=== PATIENT | female | born 1980 | race Caucasian/White ===

== ENCOUNTER 2024-09-03 16:22 | Outpatient (CLI) | payer OTHER, SELFPAY ==
--- NOTE | ~2024-09-03 | XR_ITS ---
CHEST RADIOGRAPH, PA AND LATERAL CLINICAL HISTORY: COUGH, UNSPECIFIED . COMPARISON: None available TECHNIQUE: PA and lateral views of the chest. FINDINGS The cardiomediastinal silhouette is unremarkable. The lungs are clear. Visualized osseous structures and soft tissues are unremarkable. IMPRESSION: No focal infiltrate or effusion. Reviewed, dictated and finalized at location [facility]. [facility]
== END 2024-09-03 16:23 | disposition home or self-care (01) ==
LOC: GOSHIMG 16:25
PROVIDERS: PCP Physician Assistant; Visit Provider Physician Assistant
DX: R05.9 Cough, unspecified (principal)
CPT/HCPCS: 71046

== ENCOUNTER 2025-06-09 01:26 | Day surgery (SDC) | payer OTHER, SELFPAY ==
--- OUTSIDE RECORDS SUMMARY | 2021-03-08 04:16 | XMS_ITS | Continuity of Care Document ---
Author Organization [employer] Address [address] [place] [address] [address] [place] [address] Phone Care Team Providers Care Entry Level Marketing Assistant Name Role Phone Donna OTR/L, Fawn [place] Unavailable Unavailable Procedures Procedure Date Tip Protector Finger Orthotic Mgmt and Training OT RE-EVALUATION THERAPEUTIC EXERCISES MANUAL THERAPY FUNC ACTIVITY 15 MIN ULTRASOUND THERAPY PARAFFIN BATH THERAPEUTIC EXERCISES MANUAL THERAPY FUNC ACTIVITY 15 MIN ULTRASOUND THERAPY PARAFFIN BATH THERAPEUTIC EXERCISES MANUAL THERAPY FUNC ACTIVITY 15 MIN ULTRASOUND THERAPY PARAFFIN BATH THERAPEUTIC EXERCISES MANUAL THERAPY FUNC ACTIVITY 15 MIN ULTRASOUND THERAPY PARAFFIN BATH THERAPEUTIC EXERCISES MANUAL THERAPY FUNC ACTIVITY 15 MIN ULTRASOUND THERAPY PARAFFIN BATH THERAPEUTIC EXERCISES MANUAL THERAPY FUNC ACTIVITY 15 MIN ULTRASOUND THERAPY PARAFFIN BATH OT EVALUATION THERAPEUTIC EXERCISES MANUAL THERAPY ULTRASOUND THERAPY Advance Directives Directive Yes / No Effective Date File Name No Information Encounters Encounter Description Practice Location Reason(s) For Visit Diagnoses Date Provider Providers Copied on Encounter [facility], [address] [address], [place], [place], [id number], tel:[phone] [place] No Information 1 Schwjulio c rush Fawn. [address] [place] [address], [place] [address], [facility], . tel:[phone] [facility] [address], [id number], tel:[phone] [place] No Information 1 Schwarzbetyube r Fawn. [address] [place] [address], [address], [place], [place], [facility], . tel:[phone] [facility] [address] [place] [address], [place], [place], [id number], tel:[phone] [place] No Information 3 Hauscmario Daniels. [address] [place] [address], [place] [address], [place], [facility], . tel:[phone] Referring Provider: Joni Omalley, [address] [place] [address] [address], [place], [address]. tel:[phone] [facility] [address] [place] [address], [id number], tel:[phone] [place] No Information 3 Haenid Hellerfer. [address] [place] [address], [address], [place], [place], [facility], . tel:[phone] Referring Provider: Joni Omalley, [address] [place] [address] [address], [place], [address]. tel:[phone] [facility] [address] [place] [address], [id number], tel:[phone] [place] No Information 3 Haenid Daniels. [address] [place] [address], [place] [address], [place], [facility], . tel:[phone] Referring Provider: Joni Omalley, [address] [facility] [address], [place], [address]. tel:[phone], [id number], tel:[phone] [place] No Information 3 Hauschild Frances. [address] [place] [address], [address], [place], [facility], . tel:[phone] Referring Provider: Joni Omalley, [address] [facility] [address], [place], [address]. tel:[phone], [id number], tel:[phone] [place] No Information 3 Hauschild Frances. [address] [place] [address], [address], [place], [facility], . tel:[phone] Referring Provider: Joni Omalley, [address] [place] [address] [address], [place], [address]. tel:[phone], [id number], tel:[phone] [place] No Information 3 Hauschild Frances. [address] [place] [address], [address], [place], [facility], . tel:[phone] Referring Provider: Joni Omalley, [address] [place] [address] [address], [place], [address]. tel:[phone], [id number], tel:[phone] [place] Pain in joint involving hand 3 Hauschild Frances. [address] [place] [address], [address], [place], [facility], . tel:[phone] Referring Provider: Joni Omalley, [address] [place] [address], [address]. tel:[phone] Family History Family Member Type Diagnosis Age At Onset No Information Payers Payer name Insurance type Covered alliance party ID Rayna ordaz(s) [employer] CI [id number] Social History Type Description Quantity Date Captured Comments Sex Female Smoking Status No Information Chief Complaint And Reason For Visit No Information Reason For Referral Reason For Referral No Information History Of Present Illness Encounter Date Complaint History Of Prese nt Illness No Information Functional Status Date Functional Assessmen t No Information Instructions Date Instruction Additional Infor mation No Information Assessments Type Assessment Date No Information Patient Care Teams Name Effective Dates (start - stop) Status Members No Information
[2025-06-03 10:01] VITALS: BMI 24.1
--- OUTSIDE RECORDS SUMMARY | 2025-06-09 01:29 | XMS_ITS | Clinical Summary ---
Author Organization [facility] Address [address] [place] [address] Care Team Providers Care Rug Setter Velvet Name Role Phone Lilia Stevens Primary Care Pr ovider Source Comments [facility],non-owned Affiliates and Associated Physician Practices is amultiple site organization consisting of ambulatory clinics and hospital sitesin [place], [place], [place] and [place]. This disclosure is being madepursuant to the Care Everywhere program and may not contain all information available regarding this patient. Last updated 18.[facility] Allergies Active Allergy Reactions Criticality Noted Date Comments Hydrocodone-Acetaminophen Urticaria Medium 06/28/2024 Medications * Be aware that medications may not be up to date on this document. Alwaysverify current medications with the patient. triple antibiotic (Neosporin) [id number] ointment Apply to affected area 3 times daily 30 g 06/28/2024 Active Immunizations Immunization Administration Dates Next Due TDAP (7yrs+) 06/28/2024 Social History Tobacco Use Types Packs/Day Years Used Date Smoking Tobacco: Never Assessed Comments Unknown Sex and Gender Information Value Date Recorded Sex Assigned at Not on file Legal Sex Female 3:21 AM 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 Gender Identity Not on file Sexual Orientation Not on file Last Filed Vital Signs Vital Sign Reading Time Taken Comments Blood Pressure 100/70 06/28/2024 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 Pulse 84 06/28/2024 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 Temperature 36.6 C (97.8 F) 06/28/2024 3:22 AM 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 Respiratory Rate 18 06/28/2024 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 Oxygen Saturation 100% 06/28/2024 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 Inhaled Oxygen Concentration - - Weight 68 kg (150 lb) 06/28/2024 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 Height 170.2 cm (5' 7) 06/28/2024 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 Body Mass Index 23.49 06/28/2024 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 Plan of Treatment Health Maintenance Due Date Last Done Comments COLOGUARD (AGES 45-75) - COL ON CA SCREENING 1979 COLON MONITORING 1979 COLONOSCOPY - COLON CA SCREENING 1979 CT COLONOGRAPHY - COLON CA SCREENING 1979 Colorectal Cancer Screening 1979 FIT - COLON CA SCREENING 1979 FLEX SIG - COLON CA SCREENING 1979 LIPID TESTING 1979 MAMMOGRAM 1979 HIV SCREENING 1994 HEPATITIS C SCREENING 06/15/1997 HEPATITIS B VACCINE (1 of 3 - 19+ 3-dose series) 1998 HPV VACCINE (1 - 3-dose SCDM series) 2006 DEPRESSION SCREENING 08/06/2024 COVID-19 VACCINE (1 - 2023-2 5 season) 2025 INFLUENZA VACCINE (#1) 2025 PAP SMEAR 09/26/2026 09/26/2023, 09/26/2023 ZOSTER VACCINE (1 of 2) 2029 DTAP/TDAP/TD VACCINES (2 - T d or Tdap) 06/28/2034 06/28/2024 HIB VACCINE Aged Out No longer eligi ble based on patient's age to complete this topic MENINGOCOCCAL (Group B) VACCINE SHARED DECISION-MAKING Aged Out No longer eligible based on patient's age to complete this topic MENINGOCOCCAL GROUPS A/C/Y/W VACCINE Aged Out No longer eligible b ased on patient's age to complete this topic PNEUMOCOCCAL VACCINE Aged Out No long er eligible based on patient's age to complete this topic Insurance [employer] Care Teams Rug Setter Velvet Relationship Specialty Start Date End Date Lilia Stevens PA [address] [place] [address] PCP - General Physician Medication Specialist 06/28/24
--- OUTSIDE RECORDS SUMMARY | 2025-06-09 01:29 | XMS_ITS | Data Portability ---
Author Organization [facility] [place] Address [address] [place] [address] Care Team Providers Care Marketing Teacher Name Role Phone JAIME SOLER Primary Care Provider Assessment Encounter Date Assessment Date Assessment LastModified by Organization Details LastModified Time 12/29/2020 12/29/2020 Annual gynecological exam performed. Patient will come back in a year unless there are new symptoms. [email or web address] Not available 12/29/2020 11:56:40 09/26/2023 09/26/2023 Annual gynecological exam performed. Patient will come back in a year unless there are new symptoms. Not available 09/26/2023 10:51:52 12/11/2024 12/11/2024 Annual gynecological exam performed. Patient will come back in a year unless there are new symptoms. [email or web address] Not available 12/11/2024 09:53:00 Plan of Treatment Reminders Order Date Submit Date Provider Last Modified By Organization Details Last Modified Time Details Appointments None recorded . Lab hormone panel, serum or plasma 2024 025 [facility] (Lab), [address], [place], [address], 5 05:09:49 CBC w/ auto diff 2024 025 [facility] (Lab), [address] [place], [address], 5 05:09:47 CMP, serum or plasma 2024 025 [facility] (Lab), [address] [facility], [place], [address], 5 05:09:48 lipid panel, blood 2024 025 [facility] (Lab), [address] [facility], [place], [address], 5 05:09:48 TSH, serum or plasma 2024 025 [facility] (Lab), [address] [facility], [place], [address], 5 05:09:48 HbA1c (hemoglo bin A1c), blood 2024 025 [facility] (Lab), [address] [facility], [place], [address], 5 05:09:49 Referral None recorded . Procedures colonosc opy screenin g (PROC) 2024 025 [facility], [address], [place], [address], 5 12:17:58 Surgeries None recorded . Imaging MAMMO, screenin g, digital, bilatera l 2024 025 lucio [facility], [address] [place] [address] , [place], [address], 5 11:12:32 MAMMO, screenin g, digital, bilatera l [address] [facility], [address], [facility] [address], [place], [address], 2 16:45:50 Medication Orders progeste elle microniz ed 100 mg capsule 2024 025 [facility], [address] [place], [place], [id number], 5 10:30:12 estradio l 0.075 mg/24 hr semiweek ly transder mal patch 2024 025 [facility]72625, [address] [place], [place], [id number], 5 10:30:11 progeste elle microniz ed 100 mg capsule 2024 025 [facility] #33790, [address] [place], [place], [id number], 5 10:10:13 estradio l 0.05 mg/24 hr semiweek ly transder mal patch 2024 025 [facility] #76681, [address] [place], [place], [id number], 5 10:29:56 celecoxi b 200 mg capsule [id number] [facility] [address] [facility]05551, [address] [place], [place], [id number], 5 09:54:16 Celebrex 200 mg capsule [id number] [facility] [address] [facility]79264, [address] [place], [place], [id number], 5 09:54:16 Celebrex 200 mg capsule [email or web address] [facility] [address] [facility]86459, [address] [place], [place], [id number], 5 09:54:16 Patient TargetsNo targets recorded. Patient InstructionsNo instructions recorded. Reason for Referral None Reported. 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 Order ing Locat ion: [place] [facility] Recei brittny: 12/30 0057 First Scree n: Dorene Lund Speci men: Scree aleks Pap - Image d, Cervi x STATE MENT OF ADEQU ACY: Satis facto ry for evalu ation Trans forma tion zone compo nent prese nt FINAL DIAGN OSIS: Negat michael for Intra epith elial Lesio n or Felicia humphries Elect lester mathur gus d by Dorene Lund on 2020 at 2:49 PM ----- ----- ----- ----- ----- ----- ----- ----- ----- ----- ----- ----- ----- ----- ----- ----- ----- ---- HPV RESUL TS: HPV mRNA E6/E7 : No HPV mRNA Detec del NOTE: This high risk HPV mRNA assay detec ts fourt een high- risk HPV types (16, 18, 31, 33, 35, 39, 45, 51, 52, 56, 58, 59, 66, 68) witho ut diffe renti ation . CHART ABLE COMME NT: Note: This speci men was revie wed by a Cytot echno logis t and/o r Patho logis t (as indic ated in this repor t) after evalu ation using the Thinp rep Imagi ng Syste m. CLINI MAULIK INFOR MATIO N: Menst rual Statu s: LMP (if appli cable ): 021 Clini maulik Histo ry/Pr eviou s Pap: Type of Neopl oralia (if appli cable ): Other Histo ry: Hormo qi (if appli cable ): PAP EDUCA BILL L NOTE: The Pap Test is a scree aleks test with an inher ent false negat michael rate. Liqui d-bas e sampl ing may decre ase, but will not elimi les, false negat michael resul ts. A negat michael resul t does not precl ude the prese nce and/o r devel opmen t of disea se, since the prese nce of abnor mal cells in the sampl e depen ds on the locat ion of the lesio n and sampl ing techn ique. Barbara nued regul ar scree aleks is the best metho d of cance r preve ntion . If repor del cytol ogic findi ng do not corre late with physi maulik and/o r histo rical findi ngs, furth er inves tigat ion is recom ny d, as clini joo nguyen nted. 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 Elect ronic kareen weber d by Racehl de leon, Fernando teixeira, CT on 2023 at 7:11 PM ----- ----- ----- ----- ----- ----- ----- ----- ----- ----- ----- ----- ----- ----- ----- ----- ----- ---- HPV RESUL TS: HPV mRNA E6/E7 : No HPV mRNA Detec del NOTE: This high risk HPV mRNA assay detec ts fourt een high- risk HPV types (16, 18, 31, 33, 35, 39, 45, 51, 52, 56, 58, 59, 66, 68) witho ut diffe renti ation . COMME NT: This speci men was revie wed by a Cytot echno logis t and/o r Patho logis t (as indic ated in this repor t) after evalu ation using the Thinp rep Imagi ng Syste m. CLINI MAULIK INFOR MATIO N: Menst rual Statu s: LMP (if appli cable ): Clini maulik Histo ry/Pr eviou s Pap: Type of Neopl oralia (if appli cable ): Signi fican t Clini maulik Findi ngs: Other Histo ry: Hormo qi (if appli cable ): PAP EDUCA BILL L NOTE: The Pap Test is a scree aleks test with an inher ent false negat michael rate. Liqui d-bas ed sampl ing may decre ase, but will not elimi les, false negat michael resul ts. A negat michael resul t does not precl ude the prese nce and/o r devel opmen t of disea se, since the prese nce of abnor mal cells in the sampl e depen ds on the locat ion of the lesio n and sampl ing techn ique. Barbara nued regul ar scree aleks is the best metho d of cance r preve ntion . If repor del cytol ogic findi ng do not corre late with physi maulik and/o r histo rical findi ngs, furth er inves tigat ion is recom ny d, as clini joo nguyen nted. Not Available [facility] (Lab) [address], [place], [address], 10/01/2023 20:15:00 12/12/19 25 12/11/2024 CBC W/DIF F WBC 5.8 10'3/ uL 3.5-10 .5 Not Available [facility] (Lab) [address], [place], [address], 12/12/2024 05:09:47 12/12/19 25 12/11/2024 CBC W/DIF F RBC 4.03 10'6/ uL (based on docume nted legal sex) 3.80-5 .20 Not Available [facility] (Lab) [address], [place], [address], 12/12/2024 05:09:47 12/12/19 25 12/11/2024 CBC W/DIF F HGB 13.1 g/dL (based on docume nted legal sex) 11.6-1 5.4 Not Available [facility] (Lab) [address], [place], [address], 12/12/2024 05:09:47 12/12/19 25 12/11/2024 CBC W/DIF F HCT 43.1 % (based on docume nted legal sex) 34.0-4 5.0 Not Available [facility] (Lab) [address], [place], [address], 12/12/2024 05:09:47 12/12/19 25 12/11/2024 CBC W/DIF F MCV 106.9 fL 80.0-9 9.0 high Not Available [facility] (Lab) [address], [place], [address], 12/12/2024 05:09:47 12/12/19 25 12/11/2024 CBC W/DIF F MCH 32.5 pg 27.0-3 4.0 Not Available [facility] (Lab) [address] [facility], [place], [address], 12/12/2024 05:09:47 12/12/19 25 12/11/2024 CBC W/DIF F MCHC 30.4 g/dL 32.0-3 5.5 low Not Available [facility] (Lab) [address] [facility], [place], [address], 12/12/2024 05:09:47 12/12/19 25 12/11/2024 CBC W/DIF F RDW 12.9 % 11.0-1 5.0 Not Available [facility] (Lab) [address] [facility], [place], [address], 12/12/2024 05:09:47 12/12/19 25 12/11/2024 CBC W/DIF F plt 324 10'3/ uL 150-40 0 Not Available [facility] (Lab) [address] [facility], [place], [address], 12/12/2024 05:09:47 12/12/19 25 12/11/2024 CBC W/DIF F MPV 11.5 fL 8.8-12 .1 Not Available [facility] (Lab) [address] [facility], [place], [address], 12/12/2024 05:09:47 12/12/19 25 12/11/2024 CBC W/DIF F neutrophils 43.2 % 34.0-7 3.0 Not Available [facility] (Lab) [address] [facility] [address] [facility] [address], [place], [address], 12/12/2024 05:09:47 12/12/19 25 12/11/2024 CBC W/DIF F lymphocytes 45.8 % 15.0-5 0.0 Not Available [facility] (Lab) [address] [facility], [place], [address], 12/12/2024 05:09:47 12/12/19 25 12/11/2024 CBC W/DIF F monocytes 9.2 % 1.0-15 .0 Not Available [facility] (Lab) [address] [facility], [place], [address], 12/12/2024 05:09:47 12/12/1912/11/2024 CBC W/DIF F eosinophils 0.7 % 0.0-8. 0 Not Available [facility] (Lab) [address] [facility], [place], [address], 12/12/2024 05:09:47 12/12/1912/11/2024 CBC W/DIF F basophils 0.9 % 0.0-2. 0 Not Available [facility] (Lab) [address] [facility] [address] [facility], [place], [address], 12/12/2024 05:09:47 12/12/1912/11/2024 CBC W/DIF F immature granulocytes 0.2 % no define d refere nce range Immat ure Granu locyt es (IG) repre sents autom ated enume ratio n of Metam yeloc ytes, Myelo cytes and Promy elocy jackie when IG is < 5%. Blast s are not inclu ded in IG and repor del separ ately if prese nt. Not Available [facility] (Lab) [address] [facility] [facility], [place], [address], 12/12/2024 05:09:47 12/12/1912/11/2024 CBC W/DIF F absolute neutrophils 2.5 10'3/ uL 1.5-8. 0 Not Available [facility] (Lab) [address] [facility] [facility], [place], [address], 12/12/2024 05:09:47 12/12/1912/11/2024 CBC W/DIF F absolute lymphocytes 2.6 10'3/ uL 1.0-4. 0 Not Available [facility] (Lab) [address] [facility] [facility], [place], [address], 12/12/2024 05:09:47 12/12/19 25 12/11/2024 CBC W/DIF F absolute monocytes 0.5 10'3/ uL 0.2-1. 0 Not Available [facility] (Lab) [address] [facility], [place], [address], 12/12/2024 05:09:47 12/12/19 25 12/11/2024 CBC W/DIF F absolute eosinophils 0.0 10'3/ uL 0.0-0. 6 Not Available [facility] (Lab) [address] [facility], [place], [address], 12/12/2024 05:09:47 12/12/19 25 12/11/2024 CBC W/DIF F absolute basophils 0.1 10'3/ uL 0.0-0. 3 Not Available [facility] (Lab) [address] [facility], [place], [address], 12/12/2024 05:09:47 12/12/1912/11/2024 CBC W/DIF F absolute immature granulocytes 0.0 10'3/ uL 0.00-0 .10 Refer ence range s for nonbi nary/ inter sex or unspe cifie d gende r patie nts have not been estab lishe d. Pleas e refer to the arielo wing table for range s estab lishe d for cisge nder patie nts and evalu ate in the clini maulik sebastian xt of the indiv idual patie nt: https ://buddy jamison book. nm.or g/gen derx Not Available [facility] (Lab) [address] [facility] [facility], [place], [address], 12/12/2024 05:09:47 12/12/1912/11/2024 TSH, REFLE X FREE T4 TSH 0.68 uIU/m L 0.30-5 .33 Not Available [facility] (Lab) [address] [place], [address], 12/12/2024 05:09:47 12/12/1912/11/2024 CMP(C OMPRE HENSI VE METAB OLIC PANEL ) sodium 143 mmol/ L 133-14 6 Not Available [facility] (Lab) [address] [facility], [place], [address], 12/12/2024 05:09:48 12/12/19 25 12/11/2024 CMP(C OMPRE HENSI VE METAB OLIC PANEL ) potassium 4.2 mmol/ L 3.5-5. 1 Not Available [facility] (Lab) [address] [facility], [place], [address], 12/12/2024 05:09:48 12/12/19 25 12/11/2024 CMP(C OMPRE HENSI VE METAB OLIC PANEL ) chloride 104 mmol/ L 98-107 Not Available [facility] (Lab) [address] [facility], [place], [address], 12/12/2024 05:09:48 12/12/19 25 12/11/2024 CMP(C OMPRE HENSI VE METAB OLIC PANEL ) carbon dioxide 29 mmol/ L 21-31 Not Available [facility] (Lab) [address] [facility], [place], [address], 12/12/2024 05:09:48 12/12/19 25 12/11/2024 CMP(C OMPRE HENSI VE METAB OLIC PANEL ) anion gap 10 mmol/ L 4-13 Not Available [facility] (Lab) [address] [place], [address], 12/12/2024 05:09:48 12/12/19 25 12/11/2024 CMP(C OMPRE HENSI VE METAB OLIC PANEL ) blood urea nitrogen 15 mg/dL 7-25 Not Available [facility] (Lab) [address] [place], [address], 12/12/2024 05:09:48 12/12/19 25 12/11/2024 CMP(C OMPRE HENSI VE METAB OLIC PANEL ) creatinine 0.68 mg/dL 0.60-1 .30 Not Available [facility] (Lab) [address] [place], [address], 12/12/2024 05:09:48 12/12/19 25 12/11/2024 CMP(C OMPRE HENSI VE METAB OLIC PANEL ) egfrcr (CKD-epi 2020) >90 mL/mi n/1.7 3_m2 >=60 Not Available [facility] (Lab) [address] [facility], [place], [address], 12/12/2024 05:09:48 12/12/19 25 12/11/2024 CMP(C OMPRE HENSI VE METAB OLIC PANEL ) calcium 9.5 mg/dL 8.3-10 .5 Not Available [facility] (Lab) [address] [facility], [place], [address], 12/12/2024 05:09:48 12/12/19 25 12/11/2024 CMP(C OMPRE HENSI VE METAB OLIC PANEL ) glucose 72 mg/dL 70-100 Not Available [facility] (Lab) [address] [facility], [place], [address], 12/12/2024 05:09:48 12/12/19 25 12/11/2024 CMP(C OMPRE HENSI VE METAB OLIC PANEL ) protein, total 6.8 g/dL 6.4-8. 3 Not Available [facility] (Lab) [address] [place], [address], 12/12/2024 05:09:48 12/12/19 25 12/11/2024 CMP(C OMPRE HENSI VE METAB OLIC PANEL ) albumin 4.4 g/dL 3.5-5. 0 Not Available [facility] (Lab) [address] [place], [address], 12/12/2024 05:09:48 12/12/19 25 12/11/2024 CMP(C OMPRE HENSI VE METAB OLIC PANEL ) ALT 14 units /L 9-43 Not Available [facility] (Lab) [address] [place], [address], 12/12/2024 05:09:48 12/12/19 25 12/11/2024 CMP(C OMPRE HENSI VE METAB OLIC PANEL ) alkaline phosphatase 53 units /L 34-104 Not Available [facility] (Lab) [address], [place], [address], 12/12/2024 05:09:48 12/12/19 25 12/11/2024 CMP(C OMPRE HENSI VE METAB OLIC PANEL ) AST 18 units /L 13-39 Not Available [facility] (Lab) [address] [facility] [facility], [place], [address], 12/12/2024 05:09:48 12/12/19 25 12/11/2024 CMP(C OMPRE HENSI VE METAB OLIC PANEL ) bilirubin, total 0.5 mg/dL 0.2-1. 2 Not Available [facility] (Lab) [address] [place], [address], 12/12/2024 05:09:48 12/12/19 25 12/11/2024 LIPID PANEL ,AMA (LDL- CALC) total cholesterol 194 mg/dL 0-199 Not Available [facility] (Lab) [address] [facility] [address], [place], [address], 12/12/2024 05:09:48 12/12/1912/11/2024 LIPID PANEL ,AMA (LDL- CALC) triglyceride s 239 mg/dL 0-150 high NCEP Refer ence Value s for Trigl yceri sheryl: Awilda l: <150 mg/dL Borde rline High: 150 - 199 mg/dL High: 200 - 499 mg/dL Very High: >/= 500 mg/dL Not Available [facility] (Lab) [address] [place], [address], 12/12/2024 05:09:48 12/12/19 25 12/11/2024 LIPID PANEL ,AMA (LDL- CALC) HDL cholesterol 84 mg/dL >40 Not Available [facility] (Lab) [address] [facility], [place], [address], 12/12/2024 05:09:48 12/12/1912/11/2024 LIPID PANEL ,AMA (LDL- CALC) LDL cholesterol 77 mg/dL 0-99 Cutof f value s recom ny d by the Natio nal Kaylee stero l Educa tion Progr am: LEESA ABLE: Kaylee stero l <200 mg/dL LDL <100 mg/dL BORDE RLINE : Kaylee stero l 200-2 39 mg/dL LDL 101-1 59 mg/dL HIGHE R RISK: Kaylee stero l >240 mg/dL LDL >160 mg/dL , HDL <40 mg/dL Not Available [facility] (Lab) [address] [facility], [place], [address], 12/12/2024 05:09:48 12/12/1912/11/2024 LIPID PANEL ,AMA (LDL- CALC) non-HDL cholesterol 110 mg/dL no refere nce range A reaso nable goal for non-H DL kaylee stero l is one that is 30 mg/dL highe r than the LDL kaylee stero l goal. Not Available [facility] (Lab) [address] [facility] [facility], [place], [address], 12/12/2024 05:09:48 12/12/1912/11/2024 LIPID PANEL ,AMA (LDL- CALC) chol/HDL ratio 2.3 . 0.0-5. 0 On November 28, 2022, [facility] labor atori es erinn ed the equat ion for calcu latin g estim ated low-d ensit y lipop rotei n-cho leste rol (LDL- C) from the Cierra phan equat ion to the Melani monsalve/Shari costa equat ion. This new equat ion is only valid for lipid panel s with trigl yceri sheryl < 400 mg/dL . Dianai es jelani demon strat ed that this new equat ion will impro ve the accur acy of LDL-C , espec ially in scena bond when LDL-C ulisses ntrat ions are relat ively low (< 100 mg/dL ), trigl yceri sheryl are eleva del, or patie nt is non-f astin g. Refer ences : - Melani monsalve, Flavio Irby, Aramis Chinchilla , Angel tellez, Lino Alberts, Lino ferrera, Christopher paulson , and Carrington Covarrubias . 2013. Comp ariso n of a Novel Metho d vs the Fried sylvester Equat ion for Estim ating Low-D ensit y Lipop rotei n Kaylee stero l Level s from the Stand ankita Lipid Profi le. CHRISTOPHER: The Journ al of the Ameri can Medic al Assoc iatio n 310 19): 2060- . - Roman quijano V, Hallie J, Sharon quijano A, Edmund M, Zeinab garg R, Mu quijano E, Morena [facility] RS, Satish SR, Melani monsalve SS. Fast ing Versu s Nonfa sting and Low-D ensit y Lipop rotei n Kaylee stero l Accur acy. Circu latio n. 2017Aug 07;137 (1):1 0-19. Not Available [facility] (Lab) [address], [place], [address], 12/12/2024 05:09:48 12/12/19 25 12/11/2024 FSH, LH, ESTRA DIOL estradiol <5.0 pg/mL This assay was perfo rmed using [employer] ratio n reage nts and test kits. Value s obtai osiel with other assay metho ds or kits canno t be used inter plasencia eably . Femal e Estra diol Range s: Folli cular phase 12.4- 233 pg/mL Ovula tion phase 41.0- 398 pg/mL Lutea l phase 22.3- 341 pg/mL Postm enopa usal <5-13 8 pg/mL Healt hy Pregn ant Women 1st Trime ster 154-3 243 pg/mL 2nd Trime ster 1561- 08421 pg/mL 3rd Trime ster 8525- >3000 0 pg/mL Not Available [facility] (Lab) [address], [place], [address], 12/12/2024 05:09:49 12/12/1912/11/2024 FSH, LH, ESTRA DIOL FSH 63.7 mIU/m L This assay was perfo rmed using [employer] ratio n reage nts and test kits. Value s obtai osiel with other assay metho ds or kits canno t be used inter plasencia eably . Femal es Folli cular : 3.5-1 2.5 mIU/m L Ovula tion: 4.7-2 1.5 mIU/m L Lutea l: 1.7-7 .7 mIU/m L Postm enopa use: 25.8- 134.8 mIU/m L Not Available [facility] (Lab) [address] [facility], [place], [address], 12/12/2024 05:09:49 12/12/1912/11/2024 FSH, LH, ESTRA DIOL LH 45.3 mIU/m L This assay was perfo rmed using [employer] ratio n reage nts and test kits. Value s obtai osiel with other assay metho ds or kits canno t be used inter plasencia eay . Femal es Mid-F ollic ular: 2.4-1 2.6 mIU/m L Mid-C ycle: 14.0- 95.6 mIU/m L Mid-L uteal : 1.0-1 1.4 mIU/m L Postm enopa use: 7.7-5 8.5 mIU/m L Not Available [facility] (Lab) [address] [facility] [facility], [place], [address], 12/12/2024 05:09:49 12/12/1912/11/2024 HEMOG LOBIN A1C hemoglobin A1C 5.7 % 4.0-5. 6 high The Ameri can Diabe jackie Assoc iatio n recom mends that a prima ry goal of thersp summers be a HBA1C of < 7% and that physi cians yoel d reeva luate the treat ment regim en in patie nts with HBA1C value s consi stent ly > 8%. <5.7% Awilda l 5.7 - 6.4% Incre ased risk for diabe jackie >=6.5 % Diagn ostic of diabe jackie <7.0% Goal of thera py >8.0% Actio n sugge sted Not Available [facility] (Lab) [address], [place], [address], 12/12/2024 05:09:49 Result Notes None recorded. Problems Name Problem SNOMED Code Status Onset Date Resolution Date Notes Provider Name and Address Organization Details Recorded Time Screenin g for malignan t neoplasm of cervix Completed 201012/29/2020 Pap Smear;Pr actice ID: [address] [facility] 1 11:59:37 Right lower quadrant pain [id number] Active 2011 Abdomina l pain, right lower quadrant ;Practic e ID: [id number] Not Available [facility] 0 21:23:45 Speciali zed medical examinat ion Completed 201312/29/2020 Gynecolo gical Examinat ion;Braxton rded Elsewher e: No Locat ion: [facility] S ource: EHR Head Refrigeration Engineer jimmie: N Libradoti ce ID: [id number] Allan lable Time: 01:30:00 PM Catherine Morales [facility] 1 11:59:43 Adult health examinat ion Completed 201312/29/2020 ROUTINE MEDICAL EXAM;Rec orded Elsewher e: No Locat ion: [facility] S ource: EHR Head Refrigeration Engineer jimmie: N Practi ce ID: [id number] Allan lable Time: 01:30:00 PM [address]la Morales [facility] [address] 11:59:[address] Concept Completed 201412/29/2020 Encntr for arc cutter exam (general ) (routine ) w/o abn findings ;Practic e ID: 0001 Catherine [facility] 11:59:[address] Concept Completed 201412/29/2020 Encntr for general adult medical exam w/o abnormal findings ;Recorde d Elsewher e: No Locat ion: Rafaela garg [facility] S ource: EHR Head Refrigeration Engineer jimmie: N Practi ce ID: [id number] Allan lable Time: 02:30:00 PM Catherine [facility] 11:59:39 Problem Notes None recorded. Procedures Surgical History Date Name Laterality Status Provider Name and Address Organization Details Recorded Time 09/26/19 24 Date of Last Pap Smear completed Cathy Davis [facility] 12/11/2024 09:53:25 11/25/19 21 completed [facility] 12/29/2020 12:20:09 08/06/19 11 oophorectomy completed Sabra Case [facility] 09/26/2023 10:57:04 08/06/19 08 procedure on hand completed [facility] 12/29/2020 12:03:53 08/06/19 04 procedure on elbow completed [facility] 12/29/2020 12:03:27 Imaging Results None recorded. Procedure Notes None recorded. Medical Equipment None Reported. Allergies Allergen ID Allergen Name Allergen Category Reaction Reaction Severity Criticality Documentation Date Start Date Code Code System Note Provider Name and Address Organization Details Recorded Time 89853 acetamino phen medicatio n Not available Not available Not available 07/23/2020 161 RxNorm Comme nt: [facility]at [facility] Agent : Vicod in; [facility] 12:19:49 00900 acetamino phen / hydrocodo ne medicatio n Not available Not available Not available 12/29/2020 61791 2 RxNorm [facility] 11:59:24 Medications Name Sig Start Date Stop Date Status Note LastModified by Organization Details LastModified Time celecoxib 200 mg capsule Take initial loading dose of 400mg PO day 1, then, 200mg q12hr prn with max of 7 days for dysmenor nydia. 12/11 completed Not Available Not Available Not Available doxycycli ne hyclate 100 mg capsule TAKE 1 CAPSULE BY MOUTH TWICE DAILY WITH MEALS 09/26 completed Not Available Not Available Not Available estradiol 0.075 mg/24 hr semiweekl y transderm al patch Apply 1 patch twice a week by transder mal route. 2024 active Not Available Not Available Not Avai lable triamcino lone acetonide 0.5 % topical cream APPLY TO THE AFFECTED AREA TWICE DAILY active Not Available Not Available No t Available azithromy dipti 250 mg tablet TK 2 TS PO ON DAY 1, THEN TK 1 T PO D FOR 4 DAYS 12/11 completed Not Available Not Available Not Available prednison e 20 mg tablet TAKE 2 TABLETS BY MOUTH EVERY DAY NEEDED 02/10 completed Not Available Not Available Not Available estradiol 0.05 mg/24 hr semiweekl y transderm al patch APPLY 1 PATCH TOPICALL Y TO THE SKIN 2 TIMES A WEEK 02/10 completed Not Available Not Available Not Available tramadol 50 mg tablet TAKE 1 TABLET BY MOUTH EVERY 6 HOURS 02/10 completed Not Available Not Available Not Available cephalexi n 500 mg capsule TAKE 1 CAPSULE BY MOUTH EVERY 8 HOURS 12/11 completed Not Available Not Available Not Available prednison e 50 mg tablet TAKE 1 TABLET BY MOUTH EVERY DAY FOR 5 DAYS 09/26 completed Not Available Not Available Not Available codeine 10 mg-guaife nesin 100 mg/5 mL oral liquid TAKE 10 ML BY MOUTH EVERY 4 HOURS NEEDED 12/11 completed Not Available Not Available Not Available ergocalci ferol (vitamin D2) 1,250 mcg (50,000 unit) capsule TAKE 1 CAPSULE BY MOUTH EVERY WEEK DIRECTED active Not Available Not Available No t Available epinephri ne 0.3 mg/0.3 mL injection , auto-inje ctor INJECT 1 PEN IN THE MUSCLE ONE TIME DIRECTED NEEDED FOR ALLERGIC REACTION . active Not Available Not Available No t Available cefuroxim e axetil 500 mg tablet TAKE 1 TABLET BY MOUTH EVERY 12 HOURS 12/11 completed Not Available Not Available Not Available levofloxa dipti 500 mg tablet TAKE 1 TABLET BY MOUTH EVERY 24 HOURS FOR 7 DAYS 09/26 completed Not Available Not Available Not Available methylpre dnisolone 4 mg tablets in a dose pack FOLLOW PACKAGE DIRECTIO NS 12/11 completed Not Available Not Available Not Available albuterol sulfate HFA 90 mcg/actua tion aerosol inhaler INHALE 2 PUFFS BY MOUTH EVERY 4 HOURS NEEDED active Not Available Not Available No t Available cefdinir 300 mg capsule TAKE 1 CAPSULE BY MOUTH EVERY 12 HOURS 12/11 completed Not Available Not Available Not Available doxycycli ne hyclate 100 mg tablet TAKE 1 TABLET BY MOUTH TWICE DAILY FOR 10 DAYS 09/26 completed Not Available Not Available Not Available Laverne (28) 3 mg-0.03 mg tablet take 1 tablet by oral route every day for 28 days 04/29 completed Prescrib ed Elsewher e: No Locat ion: [facility] odify By: alexis shaffer Encou nter DateTime : 04/02/20 14 01:30:00 PM Not Available Not Available Not Available progester one micronize d 100 mg capsule Take 1 capsule every day by oral route. 2024 active Not Available Not Available Not Avai lable amoxicill in 875 mg-potass ium clavulana te 125 mg tablet TAKE 1 TABLET BY MOUTH EVERY 12 HOURS 09/26 completed Not Available Not Available Not Available Triveen-D uo DHA 29 mg-1 mg-400 mg oral pack take 1 by Oral route 12/29 completed Prescrib ed Elsewher e: No Locat ion: [facility] M odify By: [email or web address] tz Encou nter DateTime : 07/20/20 15 02:30:00 PM Not Available Not Available Not Available Paxlovid 300 mg (150 mg x 2)-100 mg tablets in a dose pack TAKE 3 TABLETS BY MOUTH TWICE DAILY 12/11 completed Not Available Not Available Not Available Vitals Date Recorded Systolic And Diastolic Provider Name and Address Organization Details Last Updated DateTime 09/26/2023 118/72 mm[Hg] Che Ward, [facility]- [address], [place], [address], [facility] 09/26/2023 11:56:53 Date Recorded Body height Body mass index (BMI) Body weight Provider Name and Address Organization Details Last Updated DateTime 09/26/2023 170.18 cm 24.1 kg/m2 80501.22 g Sabra Case [facility] 09/26/2023 10:53:54 Date Recorded Body height Body mass index (BMI) Body weight Systolic And Diastolic Provider Name and Address Organization Details Last Updated DateTime 12/11/2024 170.18 cm 24.4 kg/m2 56571.41 g 109/72 mm[Hg] Cathy Davis [facility] 12/11/2024 10:00:42 Date Recorded Body height Body mass index (BMI) Body weight Systolic And Diastolic Provider Name and Address Organization Details Last Updated DateTime 12/29/2020 170.18 cm 24.7 kg/m2 69469.59 g 126/83 mm[Hg] Catherine Morales [facility] 12/29/2020 12:19:45 Date Recorded Body height Body mass index (BMI) Body weight Systolic And Diastolic Provider Name and Address Organization Details Last Updated DateTime 02/10/2025 170.18 cm 24.9 kg/m2 76066.19 g 125/84 mm[Hg] Sabra Case [facility] 02/10/2025 10:12:28 Date Recorded Body height Body mass index (BMI) Body weight Systolic And Diastolic Provider Name and Address Organization Details Last Updated DateTime 04/06/2021 170.18 cm 24.6 kg/m2 77531 g 112/76 mm[Hg] Raquel Dawkins [facility] 04/06/2021 13:02:42 Social History Question Answer Notes LastModified by Organizat ion Details LastModified Time Tobacco Smoking Status Never Smoker Catherine wren [facility] 12/29/2020 12:02:44 Do You Have An Advance Directive? No Information n ot available 12/11/2024 How Many Years Have You Consumed Alcohol? 25 Information not available 12/11/2024 Are You Blind Or Do You Have Difficulty Seeing? No Information n ot available 04/06/2021 What Is Your Level Of Caffeine Consumption? None [email or web address] Information not available 12/11/2024 How Much Tobacco Do You Chew? None [email or web address] Information not available 12/11/2024 In The 14 Days Before Symptom Onset, Have You Had Close Contact With A Laboratory-confirm ed COVID-19 While That Case Was Ill? No Information n ot available 09/26/2023 In The 14 Days Before Symptom Onset, Have You Had Close Contact With A Person Who Is Under Investigation For COVID-19 While That Person Was Ill? No Information not available 09/26/2023 Have You Been To An Area Known To Be High Risk For COVID-19? No Information not available 09/26/2023 Are You Deaf Or Do You Have Serious Difficulty Hearing? No Information not available 04/06/2021 What Type Of Diet Are You Following? REGULAR Information n ot available 04/06/2021 What Is The Highest Grade Or Level Of School You Have Completed Or The Highest Degree You Have Received? [id number] [email or web address] Information not available 12/11/2024 Are There Any Guns Present In Your Home? No [email or web address] Information not available 12/11/2024 Do You Use Protection During Sex? No [email or web address] Information not available 12/11/2024 Do You Use Your Seat Belt Or Car Seat Routinely? Yes Information not available 04/06/2021 Do You Have Smoke And Carbon Monoxide Detectors In Your Home? Yes Information not available 04/06/2021 How Much Tobacco Do You Smoke? No [email or web address] Information not available 12/11/2024 Do You Use Sunscreen Routinely? Yes [email or web address] Information not available 12/11/2024 Have You Used IV Drugs? No Information not available 12/11/2024 Sex: Unknown Functional Status Question Answer Note LastModified by Organizat ion Details LastModified Time Do you use any illicit or recreational drugs? No Information not available 04/06/2021 What is your level of alcohol consumption? Occasional Information not available 04/06/2021 Are you able to walk independently without assistance or assistive devices? 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 Heavy Information not available 12/11/2024 Mental Status Question Answer Note LastModified by Organization D etails LastModified Time Do you feel stressed (tense, restless, nervous, or anxious, or unable to sleep at night)? [id number] [email or web address] Information not available 12/11/2024 Family History Relationship Description Onset Age of this Age Resolved Age Notes LastModified by Organization Details LastModified Time Father Diabetes mellitus [email or web address] Not available 2020 12:02:25 Medical History Condition Response Other Y Gynecological History Statement/Question Response Abnormal Pap N Date of Last Mammogram Flow Moderate Date of LMP 01/24/2025 N Was last menstrual period normal N STIs/STDs N HPV Vaccine N Duration of Flow (days) 5 11/24/2020 Current Control Method None Are cycles usually normal Y Frequency of Cycle (Q days) 28 Sexually Active? Y Menses Monthly Y Age of first menstrual cycle 11 Date of Last Pap Smear 09/26/2023 Sexual Problems? N Desired Control Method None LMP Definite N Obstetrics History GPAL:G 0 P 0 0 0 0 Past Encounters Encounter ID Performer Location Encounter Start Date Encounter Closed Date Diagnosis/Indication Diagnosis SNOMED-CT Code Diagnosis ICD10 Code Diagnosis IMO Codes Diagnosis Note [id number] Che Ward [facility] [address] [address] 12/29/2020 11:47:57 12/29/2020 13:26:13 Gynecologic examination 49077110 Z01.419 Suggested Calcium with Vitamin D 1200-1500m g daily. Patient advised to get an annual flu shot in the fall and she could obtain at [facility] or [facility] care clinic. Also to obtain TDap vaccinatio n if you have not had one in the last 10 years. Recommend yearly mammograms . Encouraged monthly self breast exams. Encourage safe sexual practices, to use condoms and limit partners if not already in a monogamous relationsh ip. Engage in daily exercise of low impact aerobic exercise 45-60 minutes 4-5 times weekly. Avoid tobacco and illicit drugs as well as using moderation with alcohol intake less than 1-2 8 oz beverages daily. This lifestyle behavior pattern will lead to less health conditions and longer life span. If BMI greater than 25 weight watchers or dietary consult advised. All questions have been answered. Patient appears to understand informatio n, but if you have any questions please call or respond to this email. Pap/hpv sent Normal pap/hpv hx Mammo ordered Screening mammography 24 248838 Z12.31 Secondary dysmenorrhea 98752246 N94.5 We discussed Mirena IUD for her current periods and premedicat ing for Dysmenorrh ea. She will consider IUD but would like to trial Pre-medica ting regimen. We agreed to try Celebrex & Tramadol combo (written Rx given & copied to scan); May add tylenol to Celebrex q12hr if needed with max 7 days. Use Tramadol sparingly. Will f/u x 3mos med check. Discussed all control options. Patient will consider Mirena IUD option. I have discussed in detail all risks and benefits including risk of infection and perforatio n. She understand s she will need to contact office with next menses or may abstain, complete serum HCG day before placement, if neg can have IUD placed next day. Aware of need to verify with insurance device coverage. Literature given. [place]. [id number] Che Ward , [facility] [address] [address] 04/06/2021 12:46:15 04/06/2021 16:23:11 Secondary dysmenorrhea 17279643 N94.5 Has done really well on the celebrex/T ramadol combo during the first 1-2 days onset of her menses.She wishes to stay on this prn regimen moving forward; but will call if changes mind about getting IUD. She only uses Tramadol the first 1-2 days of her cycle (BID if needed).Sh forest voices she has tramadol 50mg tablets left over from her last fill; will call if needs a RF of this medication .Celebrex RF sent out Time spent in visit is a total of 15 mins with at least 50% of visit consisting of counseling and review of plan of care. Additional precaution cindy measures were taken to minimize potential exposure to the Covid-19 virus during this patient s visit, including available hand trip follower upon arrive, silvio e check and being asked a series of screening questions. All staff wore face coverings during this encounter, as well as provided additional cleaning and sanitizing of all surfaces, including countertop s, pens, chairs, door handles, light switches, etc, prior to and following the patient s visit. [id number] Che aWrd , [facility] [address] [address] 09/26/2023 10:42:38 09/26/2023 12:01:28 Dysmenorrhea 484833266 N94.6 Yearly Fills of Celebrex/t ramadol sent (case sent to Dr. Hawkins for Rx Tramadol)] Manages menstrual pain the first 1-2 days very well with this combo.It is not used every month; but q2-3mos if required. Gynecologi c examination 59590775 Z01.419 Z11.51 Suggested Calcium with Vitamin D 1200-1500m g daily. Patient advised to get an annual flu shot in the fall and she could obtain at [facility] or [facility] take care clinic. Also to obtain TDap vaccinatio n if you have not had one in the last 10 years. Recommend yearly mammograms . Encouraged monthly self breast exams. Encourage safe sexual practices, to use condoms and limit partners if not already in a monogamous relationsh ip. Engage in daily exercise of low impact aerobic exercise 45-60 minutes 4-5 times weekly. Avoid tobacco and illicit drugs as well as using moderation with alcohol intake less than 1-2 8 oz beverages daily. This lifestyle behavior pattern will lead to less health conditions and longer life span. If BMI greater than 25 weight watchers or dietary consult advised. All questions have been answered. Patient appears to understand informatio n, but if you have any questions please call or respond to this email. Pap/hpv sent STD Screen declined Genetic Screen discussed Colon Screen na Dexa Screen na Routine Labs PCP [id number] Sammy Hawkins MD [place] [address] [address] 12/11/2024 09:50:42 12/11/2024 10:23:57 Menopausal symptom 67678653 N95.1 [id number] Reviewed self-help strategies (dietary changes/ex ercise/acu puncture/e tc.), herbal and other OTC therapies, hormonal options as well as other medication s used to treat common menopausal symptoms. Discussed the risks, benefits and potential side effects and bleeding patterns with use of HRT. Reviewed the risk implicatio ns with short term vs termite control representative use. Patient interested in HRT.Will check labs today. We discussed Menopausal Hormone therapy (MHT) for women with intact uterus with the goals of reliving vaso-motor sx's using estrogen/p rogestin therapy (EPT) using lowest doses for shortest duration in women 40-59yo. Contraindi cations include: Hx of DVT or thrombolic events, High cholestero l, Hx of breast cancer, known CHD, active liver disease, unexplaine d vag bleeding, high risk endometria l cancer, TIA. Side effects can include but are not limited to: Irregular vag bleeding, breast tenderness , nausea, weight changes, libido changes, nausea. Adverse Rxn: Elevated BP migraine w/ visual changes, breast cancer dx, [place]/stroke, DVT/PE, Endometria l cancer. Please contact office with any new or worsening side effects or adverse reactions. Or if a medical emergency please go to nearest ED/[facility] care for further evaluation . RTO in 8 weeks for medication check Screening mammography 24 595802 Z12.31 [id number] Gynecologi c examination 20534317 Z01.419 Annual gynecologi maulik exam performed. Patient will come back in a year unless there are new symptoms. Suggest Calcium with Vitamin D if not eating in diet. Patient advised to get annual flu shot. Recommend yearly physicals and perform monthly breast exams. Genetic testing is available for patients with family history of cancer. Engage in safe sexual practices, use condoms. Encouraged to have daily exercise. Avoid tobacco and illicit drugs, moderation of alcohol. If BMI greater than 25 dietary consult advised. If you have any questions please call or email. mammogram- order given; pt to schedule colon cancer screening - referral sent to [facility] for colonoscop y DEXA scan- n/a Pap smear- UTD (2023 - WNL), will repeat in 2026 per ASCCP guidelines laboratory evaluation - requested STI testing - declined Screening colonoscopy 44 5682751 Z12.11 [id number] Sammy Hawkins MD [facility] [address] [address] 02/10/2025 09:59:49 02/10/2025 11:17:35 Menopausal symptom 22168358 N95.1 Patient reports 75% improvemen t in hot flashes during the day.Discus sed increasing estradiol 0.075 mg/24 hr semi-weekl y transderma l patch. Rx sent to trial increased dosage. Continue progestero ne 100 mg PO nightly for endometria l protection .Contact office if symptoms do not improve, or if any vaginal bleeding recurs.Ris ks/benefit s/AEs of HRT thoroughly reviewed. Health Concerns Section Related Observation LastModified by Organization Detai ls LastModified Time None Recorded Concern Status LastModified by Organization Details LastModified Time None Recorded Advance Directives Directive N: Payers Insurance Date Sequence Insurance Name Policy Number Policy Levi Covered Member ID Levi Member ID Guarantor Name 02/10/2025 1 [employer] - DOS PRIOR TO 21 - [facility] BENEFITS PLAN [id number] Verónica Pont [id number] OI [id number] SOI Verónica Pont 02/10/2025 1 [employer] - [facility] BENEFITS PLAN [id number] Verónica Pont [id number] OI Verónica Pont Notes Date Note Type Note Provider Name and Address Organization Details Recorded Time 12/30/19 21 text/htm l Annual GYNReported by PatientGenitourinary symptomsFor menstrual cycle, patient reportssevere dysmenorrhea (monthly predictabledysmenorrhea through all 5 days of her cycle.heavy x day 1-2. 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 she does not feel bcp's have helped significantly; it lightened her cycle but did not help as much with dysmenorrhea.). For urinary symptoms, patient reportsno hematuriaandno incontinence. For vulva, patient reportsno genital lesion. For vagina, patient reportsnormal vaginal discharge.Breast symptomsFor breast, patient reportsno breast pain,no breast lump, andno nipple discharge.ContraceptionFor current contraception, patient reportssatisfied with current contraceptionandpartner had vasectomy.Endocrine symptomsFor sexual complaints, patient reportsno sexual complaints,no pain during intercourse, andnormal libido. For menopausal symptoms, patient reportsno menopausal symptomsandnormal vaginal lubrication.Psychological symptomsFor psychological symptoms, patient reportsno depression,no anxiety, andno pmdd.Preventative measuresFor preventive measures, patient reportsencourage self breast examination,encourage regular exercise,encourage no tobacco use,encourage regular mammograms starting age 40, andneeds to schedule mammogram. Che Ward [facility] [address], [place], [address], [facility] 12/29/2020 13:24:34 04/06/20 21 text/htm l ROS as noted in the HPI Here for medication check of Celebrex/Tramadol combo for Severe dysmenorrhea. Che Ward [facility] [address], [place], [address], [facility] 04/06/2021 13:23:38 09/26/19 24 text/htm l Annual GYNReported by PatientHistoryFor history, patient reportsno gynecologic complaints.Genitourinary symptomsFor menstrual cycle, patient reportsnormal menses. For urinary symptoms, patient reportsno hematuriaandno incontinence. For vulva, patient reportsno genital lesion. For vagina, patient reportsnormal vaginal discharge.Breast symptomsFor breast, patient reportsno breast pain,no breast lump, andno nipple discharge.ContraceptionFor current contraception, patient reportssatisfied with current contraceptionandbirth control not practiced.Endocrine symptomsFor sexual complaints, patient reportsno sexual complaints,no pain during intercourse, andnormal libido. For menopausal symptoms, patient reportsno menopausal symptomsandnormal vaginal lubrication.Psychological symptomsFor psychological symptoms, patient reportsno depression,no anxiety, andno pmdd.Preventative measuresFor preventive measures, patient reportsencourage self breast examination,encourage regular exercise,encourage no tobacco use,encourage regular mammograms starting age 40, andfollowed with yearly pap smears. Che Ward [facility]- [address], [place], [address], [facility] 09/26/2023 12:00:00 12/12/19 25 text/htm l Annual GYNReported by PatientGenitourinary symptomsFor menstrual cycle, patient reportsirregular cycle intervalsandperimenopausal. For urinary symptoms, patient reportsno hematuriaandno incontinence. For vulva, patient reportsno genital lesion. For vagina, patient reportsnormal vaginal discharge.Breast symptomsFor breast, patient reportsno breast pain,no breast lump, andno nipple discharge.ContraceptionFor current contraception, patient reportscondoms.Endocrine symptomsFor sexual complaints, patient reportsno sexual complaints,no pain during intercourse, andnormal libido. For menopausal symptoms, patient reportsno menopausal symptomsandnormal vaginal lubrication.Psychological symptomsFor psychological symptoms, patient reportsno depression,no anxiety, andno pmdd.Preventative measuresFor preventive measures, patient reportsencourage self breast examination,encourage regular exercise,encourage no tobacco use, andencourage regular mammograms starting age 40. Patient presents for annual well woman exam. Patient reports irregular periods, hot flashes, and nights sweats that have worsened over the past 4-5 months. Cathy wren, [facility] 12/11/2024 10:56:34 02/11/20 25 text/htm l 44 y/o female presents for medication check after starting HRT with estradiol 0.075 mg/24 hrs semi-weekly transdermal patch and progesterone 100 mg nightly.Patient reports doing well and moderate improvement in vasomotor symptoms.Patient reports one episode of light spotting after initiation of HRT, but has not had any bleeding since then. ABDULKADIR ROMERO NP [address], [place], [address], [facility] 02/10/2025 11:11:12 OBGyn Episode No OBEpisode recorded.
[2025-06-09 08:38] VITALS: BP 111/93; PULSE 75; RESP 16; TEMP 36.4; O2SAT 100
[2025-06-09 08:46] LABS: BEDSIDEPREGUCG Negative (Negative)
[2025-06-09] MEDS: LACTATED RINGERS 1,000 ML 150 ML IV CONT (08:49)
--- NOTE | 2025-06-09 09:17 | WPDANESEPPF ---
Anes - Initial Pre Proc Eval Procedure: Operation Date: 06/09/25 10:00 Proposed Procedures p Screening Colonoscopy - Dhiraj Mittal MD Date/Time: 06/09/25 09:17 Surgeon: Dhiraj Mittal MD Pre Op Diagnosis: Screening Patient Data Age: 44 Gender: F Height: 1.7 m Weight: 70.8 kg Last Vital Signs Temp 36.4 C L 06/09/25 08:38 Pulse 75 06/09/25 08:38 Resp 16 06/09/25 08:38 BP 111/93 H 06/09/25 08:38 Pulse Ox 100 06/09/25 08:38 O2 Del Method Room Air 06/09/25 08:38 Allergies Allergy/AdvReac Type Severity Reaction Status Date / Time hydrocodone AdvReac Mild hallucinati Verified 06/09/25 08:36 ons Home Medications ?Medication ?Instructions ?Recorded ?Confirmed ?Type glucosamine HCl 500 mg tablet 500 mg PO DAILY 05/27/25 06/09/25 History collagen, glycosaminoglycans 260 1 cap PO DAILY 06/03/25 06/09/25 History mg-vitamin C 30 mg capsule estradiol 0.05 mg/24 hr semiweekly 1 patch transdermal .twice a week 06/03/25 06/09/25 History transdermal patch iron bisglycinate chelate 29 mg PO DAILY 06/03/25 06/09/25 History progesterone micronized 100 mg 200 mg PO QPM 06/03/25 06/09/25 History capsule Laboratory Tests 06/09/25 08:38 POC Urine HCG, Qual Negative (Negative) Patient hx anesthesia problems: none Family hx anesthesia problems: none Results Review: All pre-operative results and documents have been reviewed as part of the pre-operative evaluation. [facility] Social History Social History Alcohol intake: current Drinks per week: 10 Living arrangements: with family Spiritual care concerns: No Anes - Eval Final PreProcedure Day of Procedure 06/09/25 09:17 Patient weight: normal Heart: regular rate and rhythm Lungs: clear to auscultation Airway: Mallampati scale class II Neurological: alert and oriented Last oral intake: >/= 8 hours ASA classification: I Emergent: no Anesthetic plan: proceed Anesthesia type and monitoring: general GIVS and standard monitoring Results Review: All pre-operative results and documents have been reviewed as part of the pre-operative evaluation. Informed Consent: The patient's anesthetic plan and its attendant risks and benefits were discussed with the patient/family/POA. Questions were solicited and answers provided to the satisfaction of the patient/family/POA.
--- NOTE | 2025-06-09 09:39 | PM.HPGS ---
History of Present Illness History of Present Illness Consent: Risks, benefits, and alternatives have been discussed and questions answered. Patient agrees to proceed with procedure. Chief complaint: Screening Narrative: Verónica Mauricio is a 44 year old female here for first screening colonoscopy Review of Systems Review of Systems: All systems reviewed & are unremarkable except as noted in HPI and below PMFSH Past Medical History Medical History (Updated 06/09/25 @ 09:40 by Dhiraj Mittal MD) Colon cancer screening Social History Social History Alcohol intake: current Drinks per week: 10 Living arrangements: with family Spiritual care concerns: No Meds Home Medications and Allergies Home Medications ?Medication ?Instructions ?Recorded ?Confirmed ?Type glucosamine HCl 500 mg tablet 500 mg PO DAILY 05/27/25 06/09/25 History collagen, glycosaminoglycans 260 1 cap PO DAILY 06/03/25 06/09/25 History mg-vitamin C 30 mg capsule estradiol 0.05 mg/24 hr semiweekly 1 patch transdermal .twice a week 06/03/25 06/09/25 History transdermal patch iron bisglycinate chelate 29 mg PO DAILY 06/03/25 06/09/25 History progesterone micronized 100 mg 200 mg PO QPM 06/03/25 06/09/25 History capsule Allergies Allergy/AdvReac Type Severity Reaction Status Date / Time hydrocodone AdvReac Mild hallucinati Verified 06/09/25 08:36 ons Vital Signs Vital Signs - 24 hr 06/09/25 08:38 Temperature 97.5 F L Pulse Rate 75 Respiratory Rate 16 Blood Pressure 111/93 H Pulse Oximetry 100 Oxygen Delivery Room Air Exam Const: General: comfortable and no acute distress HENMT: Face/Nose/Sinus: Normal nares present Eyes: General: appearance normal, both eyes and all related structures Neck: Neck: no JVD Resp: Auscultation: clear to auscultation bilaterally Cardio: Rate: regular rate Rhythm: regular rhythm GI: Inspection: non-distended GI Palp: Yes Soft to palpation Skin: General skin exam: normal color Neuro: General: gait normal Speech: normal speech Extrem: General: normal to inspection Psych: Mental Status: mental status grossly normal Assessment and Plan Assessment and plan (1) Colon cancer screening: Code(s): Z12.11 - Encounter for screening for malignant neoplasm of colon Status: Acute Assessment and Plan: colonoscopy
[2025-06-09 09:56] VITALS: BP 113/66; PULSE 67; RESP 21; O2SAT 100
[2025-06-09 10:06] VITALS: BP 116/74; PULSE 63; RESP 26; O2SAT 100
[2025-06-09 10:16] VITALS: BP 107/75; PULSE 62; RESP 22; O2SAT 100
== END 2025-06-09 10:21 | disposition home or self-care (01) ==
PROVIDERS: Anesthesiology; PCP Physician Assistant; Referring Provider Student in an Organized Health Care Education/Training Program; Visit Provider Internal Medicine Gastroenterology
PROC: 0DJD8ZZ Inspection of Lower Intestinal Tract, Via Natural or Artificial Opening Endoscopic (ICD-10-PCS; CPT 45378; principal; 2025-06-09 10:00)
DX: Z12.11 Encounter for screening for malignant neoplasm of colon (principal)
CPT/HCPCS: 45378; J2003; J2704; J7120